=== PATIENT | male | born 1965 | race Caucasian/White ===

== ENCOUNTER 2017-05-18 07:38 | Day surgery (SDC) | payer OTHER ==
[~2017-05-18] VITALS: Ht 190.5 cm; Wt 106.0 kg
[~2017-05-18 07:38] MED LIST: 0.9% Sodium Chloride 1,000 ML IV SCH; FLUT16SP NS; LISI-567 PO; METF500T4 PO; Sodium Chloride LOK Flush 10 mL Syringe IV PRN; fentaNYL-PF 50 mCg/mL 2 mL Inj IVPUSH PRN
[2017-05-18 07:58] VITALS: BP 122/72; PULSE 68; RESP 17; O2SAT 99
[2017-05-18 08:57] VITALS: BP 110/66; PULSE 70; RESP 14; O2SAT 97
[2017-05-18 09:07] VITALS: BP 118/82; PULSE 76; RESP 14; O2SAT 98
--- NOTE | 2017-05-18 10:00 | ENDO ---
[address] [address] ENDOSCOPY PROCEDURE PATIENT: YAA MUNIZ : 1965 MR#: [id number] ADMIT: 05/18/2017 JOB ID: [id number] DATE: 05/18/2017 PROCEDURE: Colonoscopy. INDICATION: Rectal and anal pain. The patient's ASA classification is 1. Mallampati score is 2. MEDICATIONS: 1. Versed 6 mg. 2. Fentanyl 100 mcg. PREPARATION QUALITY: Was fair. PROCEDURE DETAILS: After informed consent was obtained, the patient was brought into the GI suite, where he was placed on oxygen via nasal cannula and monitored with continuous pulse oximeter, telemetry and blood pressure monitoring. A digital rectal examination was performed, which elicited no tenderness. Then the palpation of the prostate was performed, which was unremarkable. The colonoscope was then inserted into the rectum and advanced under direct visualization to the cecum, which was identified by the presence of the ileocecal valve and appendiceal orifice. Once the cecum was reached, the colonoscope was withdrawn back into the rectum as the mucosa and lumen were examined. In the rectum, retroflexion was performed. Following retroflexion, remaining air in the rectum was suctioned, and the procedure was completed. FINDINGS: 1. In the cecum there was an approximately 3-4 mm sessile polyp that was removed with a cold snare. 2. In the sigmoid colon there was an approximately 4 mm sessile polyp that was removed with a cold snare. 3. In the proximal rectum, there was an approximately 1.5 cm multilobed polyp that was removed with a hot snare. Just adjacent to this there was a diminutive polyp that was removed with a cold snare. 4. Scattered diverticula were seen throughout the left side of the colon. 5. Internal hemorrhoids were noted as we withdrew the colonoscope through the anal canal. IMPRESSION: 1. Cecal polyp. 2. Sigmoid polyp. 3. Rectal polyp. 4. Scattered sigmoid diverticula. 5. Internal hemorrhoids. RECOMMENDATIONS: 1. Avoid nonsteroidal anti-inflammatory drugs and anticoagulants for 72 hours. 2. Fiber rich diet. 3. Consider trial of Anusol HC suppositories if pain is recurrent. COMPLICATIONS: None. ESTIMATED BLOOD LOSS: Less than 5 mL.
--- NOTE | 2017-05-23 11:22 | PATH ---
SURGICAL PATHOLOGY Attending Physician:Chelsey Magdaleno CASE STATUS: Signed Out PATIENT NAME: YAA MUNIZ PID: [id number] : 1965 DATE COLLECTED:05/18/2017 17:01 SPECIMEN: 1: Colon, Polyp 2: Colon, Polyp 3: Rectum, Biopsy CLINICAL HISTORY: 1. CECAL POLYP 2. SIGMOID POLYP 3. RECTAL POLYP X2 FINAL DIAGNOSIS: 1. Cecal Polyp: Tubular adenoma. 2. Sigmoid Colon Polyp: Hyperplastic polyp. 3. Rectal Polyp x2: Large polypoid tubular adenoma. Small hyperplastic polyp. ICD10: D12.0 GROSS DESCRIPTION: The specimen is received in three formalin filled containers labeled with the patient's name. 1). The specimen is sublabeled "cecal polyp" and consists of a 0.3 x 0.3 x 0.2 CM portion of tissue which is entirely submitted in cassette 1A. 2). The specimen is sublabeled "sigmoid polyp" and consists of a 0.4 x 0.3 x 0.3 CM portion of tissue which is entirely submitted in cassette 2A. 3). The specimen is sublabeled "rectal polyp X2" and consists of 2 portions of tissue which aggregate to 0.7 x 0.6 x 0.5 CM. The smallest piece is entirely submitted in cassette 3A. The largest piece is trisected and entirely submitted in the same cassette. 05/18/2017 [facility] ICD-9 CODES: CPT CODES: 1: 57773 2: 85322 3: 77408 Electronically Signed Out Medardo Marion MD [facility] Pathology [facility] [address], [place] [address] Technical component performed at [facility], [facility] [address], [place], [address]
== END 2017-05-18 23:59 | disposition home or self-care (01) ==
LOC: END 07:38
PROVIDERS: ATTEND Internal Medicine Gastroenterology
DX: K62.89 Other specified diseases of anus and rectum (principal); D12.0 Benign neoplasm of cecum; D12.8 Benign neoplasm of rectum; K63.5 Polyp of colon; K57.30 Diverticulosis of large intestine without perforation or abscess without bleeding; K64.8 Other hemorrhoids; E11.9 Type 2 diabetes mellitus without complications; I10 Essential (primary) hypertension; Z79.84 Long term (current) use of oral hypoglycemic drugs
CPT/HCPCS: 45380; G0500; J2250; J3010; J7030